=== PATIENT | female | born 1965 | race Caucasian/White ===

== ENCOUNTER 2019-07-01 14:58 | Emergency (ER) | payer BC ==
[2019-07-01 15:07] VITALS: BP 138/77
[2019-07-01] MEDS ORDERED: LIDOCAINE 1% INJ-PF (10 MG/ML) 30 ML SDV ONE (15:59)
[2019-07-01] MEDS ORDERED: DOXYCYCLINE HYCLATE 100 MG TABLET PO ONE (16:12)
[2019-07-01] MEDS ORDERED: HYDROCODONE/ACETAMINOPHEN 5-325 MG TABLET PO ONE (16:12)
[2019-07-01] MEDS ORDERED: LIDOCAINE 1% INJ-PF (10 MG/ML) 30 ML SDV INJ ONE (16:14)
--- NOTE | 2019-07-01 16:20 | ER Document Report ---
ED Wound - General Chief Complaint: Wound Infection Stated Complaint: LEFT ANKLE PAIN, REDNESS Time Seen by Provider: 07/01/19 15:55 Mode of Arrival: Ambulatory Information source: Patient Notes: 54-year-old female presented to ED for an infection to a wound to her left ankle. She states she had sutures 10 days ago and she went back the next day and it was sore and swollen. They told her that was okay they did not put her on antibiotics at that time. She states she went back on Friday and they still do not put on antibiotics and now it is red and puffy and very swollen with fever and. She states she supposed to go to the doctor to get the sutures out today but she needs something done for this pain. TRAVEL OUTSIDE OF THE [place] IN LAST 30 DAYS: No - HPI Patient complains to provider of: Wound infection Occurred: Other - Gradually over the last week Onset/Duration: Gradual Quality of pain: Pressure, Throbbing Severity: Severe Pain Level: 5 Context: Injury - Laceration 10 days ago Skin Color: Erythema, Other - Swelling fluctuance Capillary refill: < 3 seconds Sensations intact: Yes Distal pulses present: Yes Associated Symptoms: Drainage, Redness, Swelling - Related Data Allergies/Adverse Reactions: latex Allergy (Verified 07/01/19 15:01) morphine Allergy (Verified 07/01/19 15:01) progesterone Allergy (Verified 07/01/19 15:01) Past Medical History - General Information source: Patient - Social History Smoking Status: Never Smoker Frequency of alcohol use: Social Drug Abuse: None Occupation: [employer] Lives with: Spouse/Significant other Family History: Reviewed & Not Pertinent Patient has suicidal ideation: No Patient has homicidal ideation: No - Past Medical History Cardiac Medical History: Reports: None Pulmonary Medical History: Reports: None EENT Medical History: Reports: None Neurological Medical History: Reports: None Endocrine Medical History: Reports: None Renal/ Medical History: Reports: Hx Ectopic , Other - Kidney removed due to deformity at Malignancy Medical History: Reports: None GI Medical History: Reports: None Skin Medical History: Reports None Psychiatric Medical History: Reports: None Traumatic Medical History: Reports: None Infectious Medical History: Reports: None Past Surgical History: Reports: Hx Genitourinary Surgery - 1 kidney and part of bladder removed due to deformity and infection, Hx Gynecologic Surgery - Partial then complete hysterectomy, Hx Kidney (Renal Surgery) - Kidney removed Review of Systems - Review of Systems Constitutional: No symptoms reported EENT: No symptoms reported Cardiovascular: No symptoms reported Respiratory: No symptoms reported Gastrointestinal: No symptoms reported Genitourinary: No symptoms reported Female Genitourinary: No symptoms reported Musculoskeletal: No symptoms reported Skin: Change in color, Other - Infection to laceration on left ankle lateral Hematologic/Lymphatic: No symptoms reported Neurological/Psychological: No symptoms reported -: Yes All other systems reviewed and negative Physical Exam - Vital signs Vitals: Temp Pulse Resp BP Pulse Ox 98.3 F 78 14 138/77 H 100 07/01/19 15:05 07/01/19 15:05 07/01/19 15:05 07/01/19 15:05 07/01/19 15:05 Interpretation: Normal - General General appearance: Appears well, Alert - HEENT Head: Normocephalic, Atraumatic Eyes: Normal Pupils: PERRL - Respiratory Respiratory status: No respiratory distress Chest status: Nontender Breath sounds: Normal Chest palpation: Normal - Cardiovascular Rhythm: Regular Heart sounds: Normal auscultation Murmur: No - Abdominal Inspection: Normal Distension: No distension Bowel sounds: Normal Tenderness: Nontender Organomegaly: No organomegaly - Back Back: Normal, Nontender - Extremities General upper extremity: Normal inspection, Nontender, Normal color, Normal ROM, Normal temperature General lower extremity: Normal weight bearing. No: Chasidy's sign Ankle: Tender, Edema, Other - Erythematous warm to the touch. No: Limited ROM - Neurological Neuro grossly intact: Yes Cognition: Normal Orientation: AAOx4 Cyn Coma Scale Eye Opening: Spontaneous Cyn Coma Scale Verbal: Oriented [place] Coma Scale Motor: Obeys Commands Cyn Coma Scale Total: 15 Speech: Normal Motor strength normal: LUE, RUE, LLE, RLE Sensory: Normal - Psychological Associated symptoms: Normal affect, Normal mood - Skin Skin Temperature: Warm Skin Moisture: Dry Skin Color: Normal Course - Vital Signs Vital signs: Temp Pulse Resp BP Pulse Ox 98.3 F 78 14 138/77 H 100 07/01/19 15:05 07/01/19 15:05 07/01/19 15:05 07/01/19 15:05 07/01/19 15:05 Procedures - Incision and Drainage Left Ankle Time completed: 16:24 Type: Simple Anesthetic type: 1% Lidocaine mL's of anesthetic: 5 Blade size: Other - scissors I&D procedure: Betadine prep applied Incision Method: Incision made by scalpel - scissors not scalpel Amount/type of drainage: small Discharge - Discharge Clinical Impression: Wound infection left ankle Condition: Stable Disposition: HOME, SELF-CARE Additional Instructions: Infections You have an infection. This is due to bacteria, which can enter through any break in the skin, or even through an irritated hair follicle. Untreated, infections will usually worsen. Antibiotics are required. Usually, warm packs or warm soaks, and elevation of the infected area are recommended. You should start getting better within 24 to 36 hours. Most infections respond quickly to the right medication. Follow-up care is important, however, to check for abscess (boil) formation, unsuspected foreign body, or resistant infection. If you develop fever, chills, or if the area of infection is becoming rapidly more swollen or painful, call the doctor at once. Epsom Salt Soaks Soak the wound area in a container of warm epsom salt water. If you can't get the wound area into a bucket or bai, use a folded towel soaked in the epsom salt solution and apply to the area. Use clean hot tap water (about the temperature of a very warm bath), mixing in about one (1) teaspoon for every pint of water. Two gallon --> 16 teaspoons Epsom Salts One gallon --> 8 teaspoons Epsom Salts Two quarts --> 4 teaspoons Epsom Salts One quart --> 2 teaspoons Epsom Salts Soak the wound for about 20 minutes while gently moving it around in the water. Repeat this four (4) times a day. Doxycycline Doxycycline (Vibramycin, Doryx) is an antibiotic of the tetracycline family. This type of drug is useful for infections of the respiratory tract and genital tract, and is sometimes used for intestinal infections. Unlike most tetracyclines, doxycycline can be taken with food. It is longer acting, and (usually) less prone to side effects than regular tetracycline. Tetracycline antibiotics can stain immature teeth and SHOULD NOT BE TAKEN BY CHILDREN, NURSING MOTHERS, OR WOMEN. Tetracyclines can make you more prone to sunburn. Abdominal cramping, nausea, and diarrhea are occasional side effects. Women may experience vaginal yeast infections. Call the doctor at once if you develop hives, itching, shortness of breath, or lightheadedness. Oral Narcotic Medication You have been given a prescription for pain control. This medication is a narcotic. It's best taken with food, as nausea can result if taken on an empty stomach. Don't operate machinery or drive within six hours of taking this me dication. Do not combine this medicine with alcohol, or with any medication which can cause sedation (such as cold tablets or sleeping pills) unless you get permission from the physician. Narcotics tend to cause constipation. If possible, drink plenty of fluids and eat a diet high in fiber and fruits. Antibiotic Ointment Protection Your wounds are such that dressing them is not practical or optional. After cleansing, you should apply a thin coating of antibiotic ointment (Bacitracin, not Neosporin) to the wounds at least three times daily. This lessens infection risk, and may decrease the amount of scarring. Use a q-tip or dull butter knife, not your finger, to apply this ointment. Any debris or ooze which builds up in the ointment should be gently rubbed off with a sterile gauze pad. Harder crusting may need to be gently scrubbed off with a clean wash cloth with soap and warm water, perhaps applying a warm, wet wash cloth to the wound for ten minutes first. Development of redness, severe itching, or blistering may mean allergy to the ointment. See the doctor. FOLLOW-UP CARE: If you have been referred to a physician for follow-up care, call the physicians office for an appointment as you were instructed or within the next two days. If you experience worsening or a significant change in your symptoms, notify the physician immediately or return to the Emergency Department at any time for re-evaluation. Prescriptions: Doxycycline Hyclate 100 mg PO BID #14 capsule Forms: Elevated Blood Pressure
== END 2019-07-01 16:29 | disposition home or self-care (01) ==
LOC: ER 14:58
DX: S91.012D Laceration without foreign body, left ankle, subsequent encounter (principal); L08.9 Local infection of the skin and subcutaneous tissue, unspecified; X58.XXXD Exposure to other specified factors, subsequent encounter; Z91.040 Latex allergy status; Z88.6 Allergy status to analgesic agent
CPT/HCPCS: 99282; 10060; J3490

== ENCOUNTER 2020-05-29 12:04 | Emergency (ER) | payer BC ==
[2020-05-29] MEDS ORDERED: LORAZEPAM 1 MG TABLET PO ONE (12:20)
[2020-05-29] MEDS ORDERED: LIDOCAINE 1%/EPINEPHRINE INJ 20 ML VIAL INJ ONE (12:20)
[2020-05-29] MEDS ORDERED: ACETAMINOPHEN 325 MG TABLET PO ONE (12:20)
[2020-05-29] MEDS ORDERED: LIDOCAINE 4% CREAM 5 GM TUBE TP ONE (12:20)
--- NOTE | 2020-05-29 12:23 | ER Document Report ---
HPI - HPI Patient complains to provider of: facial lac Time Seen by Provider: 05/29/20 12:16 Onset: Just prior to arrival Onset/Duration: Sudden Quality of pain: Achy Pain Level: 4 Context: Patient states that she slipped on a stair and fell hitting her face on a chair rail. Patient denies any loss of consciousness, nausea or vomiting. Patient with laceration to left infraorbital area. Patient reports tetanus immunizations currently up-to-date. Associated Symptoms: Headache - Facial pain. denies: Nausea, Vomiting Exacerbated by: Denies Relieved by: Denies Similar symptoms previously: No Recently seen / treated by doctor: No - ROS ROS below otherwise negative: Yes Systems Reviewed and Negative: Yes All other systems reviewed and negative - NEURO Neurology: DENIES: Weakness Notes: Left-sided facial pain - GASTROINTESTINAL Gastrointestinal: DENIES: Nausea, Patient vomiting - MUSCULOSKELETAL Musculoskeletal: DENIES: Extremity pain, Back Pain, Neck Pain - DERM Skin Color: Normal Skin Problems: Laceration - 2.5 cm laceration Past Medical History - General Information source: Patient - Social History Smoking Status: Never Smoker Chew tobacco use (# tins/day): No Frequency of alcohol use: Occasional Drug Abuse: None Occupation: Housekeeping Lives with: Family Family History: Reviewed & Not Pertinent Renal/ Medical History: Reports: Hx Ectopic . Denies: Hx Peritoneal Dialysis GI Medical History: Reports: Hx Gastroesophageal Reflux Disease Past Surgical History: Reports: Hx Genitourinary Surgery - 1 kidney and part of bladder removed due to deformity and infection, Hx Gynecologic Surgery - Partial then complete hysterectomy, Hx Kidney (Renal Surgery) - Kidney removed Vertical Provider Document - CONSTITUTIONAL Agree With Documented VS: Yes Exam Limitations: No Limitations General Appearance: WD/WN, No Apparent Distress - INFECTION CONTROL TRAVEL OUTSIDE OF THE [place] IN LAST 30 DAYS: No - HEENT HEENT: Normocephalic, PERRLA Notes: 3 cm laceration to left infraorbital area, extraocular movements intact - NECK Neck: Normal Inspection, Supple Notes: No cervical midline tenderness step-off or deformity - RESPIRATORY Respiratory: Breath Sounds Normal, No Respiratory Distress - CARDIOVASCULAR Cardiovascular: Regular Rate, Regular Rhythm - BACK Back: Normal Inspection - MUSCULOSKELETAL/EXTREMETIES Musculoskeletal/Extremeties: MAEW - NEURO Level of Consciousness: Awake, Alert, Appropriate Motor/Sensory: No Motor Deficit, No Sensory Deficit - DERM Integumentary: Warm, Laceration - 3 cm laceration to the left infraorbital area Course - Re-evaluation Re-evalutation: 05/29/20 13:41 CT scan reviewed, no underlying fracture. Discussed wound management with patient. Patient encouraged to follow-up with plastics for any cosmetic concerns about the appearance of the laceration. - Vital Signs Vital signs: Temp Pulse Resp BP Pulse Ox 98.6 F 82 14 133/79 H 100 05/29/20 12:10 05/29/20 12:08 05/29/20 12:08 05/29/20 12:08 05/29/20 12:08 - Diagnostic Test Radiology reviewed: Reports reviewed Procedures - Laceration/Wound Repair Face Wound length (cm): 3 Wound's Depth, Shape: Linear Laceration pre-procedure: Shur-Clens applied Anesthetic type: 1% Lidocaine w/epi Wound explored: Clean Wound Repaired With: Sutures Suture Size/Type: 6:0, Nylon Number of Sutures: 7 Layer Closure?: No Post-procedure NV exam normal: Yes Complications: No Adult Head Front/Back picture: 1 - lac Discharge - Discharge Clinical Impression: Facial laceration Qualifiers: Encounter type: initial encounter Qualified Code(s): S01.81XA - Laceration without foreign body of other part of head, initial encounter Condition: Stable Disposition: HOME, SELF-CARE Instructions: Facial Laceration ([facility]) Additional Instructions: Return immediately for any new or worsening symptoms Followup with your primary care provider, call tomorrow to make a followup appointment Suture removal in 6 days Referrals: ARMANI GILBERT DO [Primary Care Provider] - Follow up as needed LORENE TABARES MD [ACTIVE STAFF] - Follow up as needed
--- NOTE | 2020-05-29 12:50 | RADIOLOGY REPORT (SQ) ---
EXAM DESCRIPTION: CT ORBIT/SELLA WITHOUT IMAGES COMPLETED DATE/TIME: 05/29/2020 12:36 pm REASON FOR STUDY: fall, L facial injury COMPARISON: None. TECHNIQUE: Noncontrasted images through the orbits windowed for bone and soft tissue. Additional co callie and sagittal reconstructed images reviewed. All images stored on PACS. All CT scanners at this facility use dose modulation, iterative reconstruction, and/or weight based d osing when appropriate to reduce radiation dose to as low as reasonably achievable (ALARA). [facility]: Dose Right [facility]: CareDose [facility]: Dose Right [facility]: Teradose 4D [facility]: [employer] RADIATION DOSE: CT Rad equipment meets quality standard of care and radiation dose reduction techniq ues were employed. CTDIvol: 30.4 mGy. DLP: 365 mGy-cm. mGy. LIMITATIONS: None. FINDINGS: FACIAL BONES: No fracture or bone lesion. ORBITS: Intact. No fracture. Symmetric intact globes and retroorbital soft tissues. PARANASAL SINUSES: Clear. No significant mucosal thickening, mass or fluid. No nasal polyps. Maxilla ry sinus outlets are patent. SOFT TISSUES: Subcutaneous gas and edema in the left infraorbital region. INFERIOR BRAIN: Limited view. No acute findings. OTHER: No other significant finding. IMPRESSION: Evidence of soft tissue injury in the left infraorbital region. No underlying fracture. No radiopaque foreign bodies. TECHNICAL DOCUMENTATION: JOB ID: [id number] Quality ID # [id number]: Final reports with documentation of one or more dose reduction techniques (e.g., Au tomated exposure control, adjustment of the mA and/or kV according to patient size, use of iterative reconstruction technique) 2010 [employer]- All Rights Reserved Reading location - IP/workstation name: [email or web address]
[2020-05-29 13:59] VITALS: BP 121/72
== END 2020-05-29 13:59 | disposition home or self-care (01) ==
LOC: ER 12:04
DX: S01.412A Laceration without foreign body of left cheek and temporomandibular area, initial encounter (principal); W10.9XXA Fall (on) (from) unspecified stairs and steps, initial encounter
CPT/HCPCS: 99283; 70480; 12013; J3490 ×2

== ENCOUNTER 2020-11-08 06:44 | Emergency (ER) | payer BC ==
[2020-11-08] MEDS ORDERED: LIDOCAINE 5% (700 MG) TRANSDERMAL ADH..PATCH TP ONE (07:34)
[2020-11-08] MEDS ORDERED: KETOROLAC TROMETHAMINE 60 MG/2 ML SDV IM ONE (07:34)
[2020-11-08] MEDS ORDERED: OXYCODONE-ACETAMINOPHEN 5-325 MG TABLET PO ONE (07:34)
--- NOTE | 2020-11-08 07:36 | ER Document Report ---
ED General - General Chief Complaint: Back Injury Stated Complaint: BACK INJURY Time Seen by Provider: 11/08/20 07:17 Primary Care Provider: ARMANI GILBERT DO [Primary Care Provider] - Follow up as needed Notes: This is a 55-year-old lady with a prior history of lumbar or thoracic compression fractures who presents with left-sided and right-sided mid back pain. She went to sit on the toilet at 2 in the morning on the rug slipped so she fell sideways and crumpled her lower back/lower posterior chest wall into the lip on the bathtub. She is having pain when breathing but no anterior chest pain no radiation down the legs no numbness or tingling. Pain is severe and she is not taken anything for it TRAVEL OUTSIDE OF THE [place] IN LAST 30 DAYS: No - Related Data Allergies/Adverse Reactions: egg Allergy (Verified 11/08/20 08:47) latex Allergy (Verified 11/08/20 07:25) morphine Allergy (Verified 11/08/20 07:25) progesterone Allergy (Verified 11/08/20 07:25) Past Medical History - General Information source: Patient - Social History Smoking Status: Unknown if Ever Smoked Family History: Reviewed & Not Pertinent Renal/ Medical History: Reports: Hx Ectopic . Denies: Hx Peritoneal Dialysis GI Medical History: Reports: Hx Gastroesophageal Reflux Disease Past Surgical History: Reports: Hx Genitourinary Surgery - 1 kidney and part of bladder removed due to deformity and infection, Hx Gynecologic Surgery - Partial then complete hysterectomy, Hx Kidney (Renal Surgery) - Kidney removed Review of Systems - Review of Systems Notes: REVIEW OF SYSTEMS GEN: Denies fever, chills, weight loss ENT: Denies sore throat, nasal discharge, ear pain EYES: Denies blurry vision, eye pain, discharge CV: Posterior chest wall pain a RESP: Denies cough, shortness of breath, wheezing GI: Denies abdominal pain, nausea, vomiting, diarrhea MSK: Back pain SKIN: Denies rash, skin lesions LYMPH: Denies swollen glands/lymph nodes NEURO: Denies headache, focal weakness or numbness, dizziness PSYCH: Denies depression, suicidal or homicidal ideation PHYSICAL EXAMINATION General: No acute distress, well-nourished Head: Atraumatic, normocephalic ENT: Mouth normal, oropharynx moist, no exudates or tonsillar enlargement Eyes: Conjunctiva normal, pupils equal, lids normal Neck: No JVD, supple, no guarding CVS: Normal rate, regular rhythm, no murmurs no anterior chest tenderness or crepitus. Posterior rib/lumbar tenderness Resp: No resp distress, equal and normal breath sounds bilaterally GI: Nondistended, soft, no tenderness to palpation, no rebound or guarding Ext: No deformities, no edema, normal range of motion in upper and lower ext Back: Thoracic and upper lumbar tenderness both in the midline and paraspinous areas Skin: No rash, warm Lymphatic: No lymphadeopathy noted Neuro: Awake, alert. Face symmetric. GCS 15. Physical Exam - Vital signs Vitals: Temp Pulse Resp BP Pulse Ox 97.9 F 81 18 138/90 H 97 11/08/20 06:54 11/08/20 06:54 11/08/20 06:54 11/08/20 06:54 11/08/20 06:54 Course - Re-evaluation Re-evalutation: 11/08/20 09:12 Presents with fall and back pain, suspicion of rib fractures and spine injury, minor CTs of the lumbar and chest were done, given pain medicine CT shows 3 or 4 closed right rib fractures with a moderate to large pneumothorax Reassessed patient after CT: No JVD breathing comfortably no evidence of tension Despite this placed on oxygen moved to trauma room Discussed with [facility] Dr. Landa who accepted patient as a trauma transfer Chest tube/pigtail was placed given there is no hemothorax. Confirm with x-ray at 915 good breath sounds good saturation came out of sedation well 11/08/20 10:19 Patient is comfortable after fentanyl. EMS will be coming shortlyexamined at 1020. Stable normal vital signs stable for transfer Lidocaine patch was placed for pain control. I communicated with Dr. Landa but also Dr. Tavares from the trauma service at [facility]. - Vital Signs Vital signs: Temp Pulse Resp BP Pulse Ox 97.9 F 81 22 H 135/75 H 100 11/08/20 06:54 11/08/20 06:54 11/08/20 10:01 11/08/20 10:01 11/08/20 10:01 - Laboratory Results Result Diagrams: 11/08/20 08:48 11/08/20 08:48 Laboratory Results Interpreted: 11/08/20 11/08/20 08:48 08:48 WBC 11.9 H Lymph % (Auto) 11.8 L Absolute Neuts (auto) 9.6 H Seg Neutrophils % 80.4 H Est GFR ( Amer) 56 L Est GFR (MDRD) Non-Af 46 L Glucose 112 H Critical Laboratory Results Reviewed: No Critical Results - Radiology Results Critical Radiology Results Reviewed: Yes Attending or Supervising Physician who Reviewed Radiology: SARAH GONZALEZ Procedures - Chest Tube Right Midclavicular Time completed: 09:12 Consent obtained: Yes Chest tube pre-insertion: Sterile PPE donned, Chloraprep applied Anesthetic type: 2% Lidocaine mL's of anesthetic: 10 Chest tube post-insertion: Sutured, Position confirmed w/ CXR, Water seal Chest tube drainage: Pigtailsuboptimal sizing, however using 11 catheter technique to insert pi Number of attempts: 1 Notes: 11/08/20 09:12 Small amount of bleeding suture with mattress suture due to large skin neck. No expanding hematoma noted. - Conscious Sedation Conscious sedation Time started: 08:45 Time completed: :20 Consent obtained: Yes Indication: Chest tube ASA Classification: Choose one classification Normal healthy pt.: P1. - ASA Classification Airway Evaluation: Normal anatomy Mallampati Classification: Class 1 Used during procedure: Suction available, IV access obtained, Pulse ox on pt., clam bed laborer on pt. Medications administered: Ketamine - 75 mg Reversal agents: None I personally performed/intraservice time: Sedation, Procedure, 31-45 min Complications: No Critical Care Note - Critical Care Note Total time excluding time spent on procedures (mins): 34 Comments: Critical care the above patient is critically ill. Not including procedures, but including direct re-evaluations, speaking with patient and/or consultants, i nterpreting results, and documenting, I spent the total amount of minute listed listed above on critical care time Discharge - Discharge Clinical Impression: Pneumothorax, right Ribs, multiple fractures Qualifiers: Encounter type: initial encounter Fracture type: closed Laterality: right Qualified Code(s): S22.41XA - Multiple fractures of ribs, right side, initial encounter for closed fracture Condition: Critical Disposition: [facility] Referrals: ARMANI GILBERT DO [Primary Care Provider] - Follow up as needed
[2020-11-08] MEDS ORDERED: LIDOCAINE 2% INJ-PF (20 MG/ML) 10 ML AMPUL INFIL ONE (08:33)
[2020-11-08] MEDS ORDERED: KETAMINE HCL INJ 500 MG/10 ML VIAL IV ONE (08:33)
--- NOTE | 2020-11-08 08:58 | RADIOLOGY REPORT (SQ) ---
EXAM DESCRIPTION: CT CHEST WITHOUT IMAGES COMPLETED DATE/TIME: 11/08/2020 8:30 am REASON FOR STUDY: fall on bacjk COMPARISON: None. TECHNIQUE: CT scan performed of the chest without intravenous contrast. Images reviewed with lung, soft tissue and bone windows. Reconstructed coronal and sagittal MPR images reviewed. All images st ored on PACS. All CT scanners at this facility use dose modulation, iterative reconstruction, and/or weight based d osing when appropriate to reduce radiation dose to as low as reasonably achievable (ALARA). [facility]: Dose Right [facility]: CareDose [facility]: Dose Right [facility]: Teradose 4D [facility]: [employer] RADIATION DOSE: CT Rad equipment meets quality standard of care and radiation dose reduction techniq ues were employed. CTDIvol: 7.7 mGy. DLP: 267 mGy-cm. mGy. LIMITATIONS: No technical limitations. FINDINGS: LUNGS AND PLEURA: A large right pneumothorax is present, about 50%. There is partial angus apse of the right upper lobe, right middle lobe, right lower lobe. Findings discussed with Dr. Natasha johns. No left-sided pneumothorax or pleural effusion. No left focal consolidation. HILAR AND MEDIASTINAL STRUCTURES: There is shift of mediastinal structures slightly toward the left. HEART AND VASCULAR STRUCTURES: No aneurysm. No pericardial effusion. UPPER ABDOMEN: No significant findings. Limited exam. THYROID AND OTHER SOFT TISSUES: No masses. No adenopathy. BONES: Fractures at the right posterior 9th, 10th, 11th ribs. 25 to 50% upper endplate compression of T9 with sclerosis along the upper endplate, likely chronic. HARDWARE: None in the chest. OTHER: No other significant findings. IMPRESSION: Large right pneumothorax is present. Partial collapse right upper lobe, right middle lo be, right lower lobe. Fractures of the right posterior 9th, 10th, 11th ribs Probably chronic 25 to 50% upper endplate compression of T9 Findings discussed with Dr. Gonzalez in the emergency room 0845 hours 11/08/2020 as a critical result COMMENT: Pertinent findings on the imaging study reported as a CRITICAL RESULT to SARAH GONZALEZ MD at 08:45 on 11/08/2020. Category of Critical Result: Large right pneumothorax TECHNICAL DOCUMENTATION: JOB ID: [id number] Quality ID # [id number]: Final reports with documentation of one or more dose reduction techniques (e.g., Au tomated exposure control, adjustment of the mA and/or kV according to patient size, use of iterative reconstruction technique) 2010 [employer]- All Rights Reserved Reading location - IP/workstation name: [id number]
[2020-11-08 09:00] LABS: ABSOLUTE BASOPHILS # (AUTO) 0.1 10^3/uL (0.0-0.2); ABSOLUTE EOSINOPHILS # (AUTO) 0.1 10^3/uL (0.0-0.6); ABSOLUTE LYMPHOCYTES (AUTO) 1.4 10^3/uL (0.5-4.7); ABSOLUTE MONOCYTES (AUTO) 0.8 10^3/uL (0.1-1.4); ABSOLUTE NEUT (AUTO) 9.6 10^3/uL (1.7-8.2); BASOPHILS % (AUTO) 0.5 % (0-2); EOSINOPHILS % (AUTO) 0.5 % (0-6); HEMATOCRIT 40.2 % (36.0-47.0); HEMOGLOBIN 13.4 g/dL (12.0-15.5); LYMPHOCYTES % (AUTO) 11.8 % (13-45); MEAN CORPUSCULAR HEMOGLOBIN 30.5 pg (27.0-33.4); MEAN CORPUSCULAR HGB CONC 33.3 g/dL (32.0-36.0); MEAN CORPUSCULAR VOLUME 92 fl (80-97); MONOCYTES % (AUTO) 6.8 % (3-13); PLATELET COUNT 278 10^3/uL (150-450); RED BLOOD COUNT 4.39 10^6/uL (3.72-5.28); SEGMENTED NEUTROPHILS % (AUTO) 80.4 % (42-78); TOTAL CELLS COUNTED % (AUTO) 100 %; WHITE BLOOD COUNT 11.9 10^3/uL (4.0-10.5)
--- NOTE | 2020-11-08 09:15 | RADIOLOGY REPORT (SQ) ---
EXAM DESCRIPTION: CT LUMBAR SPINE WITHOUT IMAGES COMPLETED DATE/TIME: 11/08/2020 8:30 am REASON FOR STUDY: fall on bacjk COMPARISON: CT chest same date TECHNIQUE: Axial images acquired through the lumbar spine without intravenous contrast. Images revi ewed with lung, soft tissue and bone windows. Reconstructed coronal and sagittal MPR images reviewed . All images stored on PACS. All CT scanners at this facility use dose modulation, iterative reconstruction, and/or weight based d osing when appropriate to reduce radiation dose to as low as reasonably achievable (ALARA). [facility]: Dose Right [facility]: CareDose [facility]: Dose Right [facility]: Teradose 4D [facility]: [employer] RADIATION DOSE: 18.5 mGy. LIMITATIONS: None. FINDINGS: SEGMENTATION: Normal. No transitional anatomy. ALIGNMENT: Mild convex leftward lumbar curvature VERTEBRAL BODIES: No fractures. No dislocation. No acute findings. DISCS: No significant protrusions. Study limited by lack of intrathecal contrast. PEDICLES, TRANSVERSE PROCESSES: No fractures. No dislocation. No acute findings. FACETS, POSTERIOR ELEMENTS: No fractures. No dislocation. No spinal stenosis. There is bilateral l ower lumbar facet arthropathy from L3-4 through L5-S1 HARDWARE: None in the spine. VISUALIZED RIBS: Fracture right posterior 11th rib. Patient has fractures of the posterior right 9th 10th and 11th ribs and a moderate pneumothorax on accompanying chest CT. Findings were discussed wi emergency room attending physician. SOFT TISSUES: Limited view of the posterior right lobe liver, right adrenal gland unremarkable. OTHER: No other significant finding. IMPRESSION: No acute fracture of the lumbar spine. Posterior right 11th rib fracture with right-sided pneumothorax. Please see CT the chest results for further details. TECHNICAL DOCUMENTATION: JOB ID: [id number] Quality ID # [id number]: Final reports with documentation of one or more dose reduction techniques (e.g., Au tomated exposure control, adjustment of the mA and/or kV according to patient size, use of iterative reconstruction technique) 2010 [employer]- All Rights Reserved Reading location - IP/workstation name: [email or web address]
[2020-11-08] MEDS ORDERED: FENTANYL CITRATE INJ/PF 100 MCG/2 ML AMPUL IV ONE (09:35)
[2020-11-08 09:42] LABS: ANION GAP 8 (5-19); BLOOD UREA NITROGEN 17 mg/dL (7-20); CARBON DIOXIDE 23 mmol/L (22-30); CHLORIDE 106 mmol/L (98-107); GLUCOSE 112 mg/dL (75-110); POTASSIUM 4.6 mmol/L (3.6-5.0)
--- NOTE | 2020-11-08 09:50 | RADIOLOGY REPORT (SQ) ---
EXAM DESCRIPTION: CHEST SINGLE VIEW IMAGES COMPLETED DATE/TIME: 11/08/2020 9:40 am REASON FOR STUDY: PTC s?p chest tube COMPARISON: CT chest earlier today EXAM PARAMETERS: NUMBER OF VIEWS: One view. TECHNIQUE: Single frontal radiographic view of the chest acquired. RADIATION DOSE: NA LIMITATIONS: None. FINDINGS: LUNGS AND PLEURA: Since the CT chest, a small anterior right upper chest tube has been shandra aurora. Near complete resolution of the right pneumothorax with trace right apical residual pneumothora x marked with an arrow. Minimal right basilar atelectasis. No gross right pleural effusion. There is minimal basilar atelectasis. No gross left pneumothorax or pleural effusion. MEDIASTINUM AND HILAR STRUCTURES: No masses. Contour normal. HEART AND VASCULAR STRUCTURES: Heart normal in size. Normal vasculature. BONES: No acute findings. HARDWARE: Right small caliber anterior chest tube in the 2nd anterior rib interspace. Trace residual right apical pneumothorax OTHER: No other significant finding. IMPRESSION: Right small caliber anterior chest tube in place, trace right residual apical pneumothor ax TECHNICAL DOCUMENTATION: JOB ID: [id number] 2010 [employer]- All Rights Reserved Reading location - IP/workstation name: [email or web address]
[2020-11-08 11:01] VITALS: BP 127/79
== END 2020-11-08 10:50 | disposition short-term general hospital (02) ==
LOC: ER 06:44
DX: S22.41XA Multiple fractures of ribs, right side, initial encounter for closed fracture (principal); S27.0XXA Traumatic pneumothorax, initial encounter; R07.89 Other chest pain; W01.198A Fall on same level from slipping, tripping and stumbling with subsequent striking against other object, initial encounter; Y92.002 Bathroom of unspecified non-institutional (private) residence as the place of occurrence of the external cause; Z88.8 Allergy status to other drugs, medicaments and biological substances
CPT/HCPCS: 99285; 96372; 99153; 99152; 96374; 36415; 85025; 80048; 71045; 71250; 72131; 32551; J1885; J3010; J3490